=== PATIENT | female | born 1960 | race Caucasian/White ===

== ENCOUNTER 2020-06-01 08:52 | Emergency (ER) | payer SELFPAY ==
[~2020-06-01] VITALS: Ht 160 cm; Wt 63.5 kg
[~2020-06-01 08:52] MED LIST: GARLIC PO; GLUCOSAMINE PO; MULTIVITAMIN PO; OMEGA 3 PO; VITAMIN D2000 UNIT PO
[2020-06-01] MEDS ORDERED: LYSINE500 MG PO (09:07)
[2020-06-01] MEDS ORDERED: TURMERIC500 M2 PO (09:08)
--- NOTE | 2020-06-02 12:06 | EKG ---
[facility] [address] [facility] [place] [address] Signed Normal sinus rhythm Nonspecific ST abnormality Abnormal ECG No previous ECGs available Confirmed by TUCKER MCCLURE MD ([id number] on 06/02/2020 12:06:19 PM Electronically Signed By: TUCKER MCCLURE MD 06/02/20 1206 PATIENT NAME: GUILLERMINA SUMMERS Electrocardiogram DATE OF : 60 PHYSICIAN: TUCKER MCCLURE MD REPORT #: [id number] REPORT IS CONFIDENTIAL AND NOT TO BE RELEASED WITHOUT AUTHORIZATION
== END 2020-06-01 10:11 | disposition home or self-care (01) ==
LOC: ED 08:52
DX: R07.2 Precordial pain (principal); Z79.899 Other long term (current) drug therapy
CPT/HCPCS: 71045; 80053; 83690; 84484; 85025; 93005; 93010; 99285-25